=== PATIENT | female | born 1945 | race Asian ===

== ENCOUNTER 2016-07-09 16:18 | Observation (INO) | payer OTHER ==
[2016-07-09] VITALS (8 sets, daily range): BP systolic 166–199; BP diastolic 71–87; TEMP 98.2–98.4
[~2016-07-09] VITALS: Ht 167.6 cm; Wt 111.4 kg
[~2016-07-09 16:18] MED LIST: ACET7.5T70 PO; AMLO5TAB PO; BENICAR HCT1 TA1 PO; BENICAR HCT1 TAB PO; CLINDAMYCIN300 MG OR; COLC0.6T6 PO; DIAZ5TAB20 PO; DULO30CA PO; FLUT0.05 NAS; FLUTMIS6 INH; HYDR25TA15 PO; KRISTALOSE10 GM OR; LISI10TA11 PO; MECLIZINE25 MG OR; NUCYNTA100 MG PO; ROBAXIN500 MG PO; STOOL SOFTNR100 M1 PO; TOPAMAX50 MG PO; XOPENEX HFA IN
[2016-07-09 17:47] LABS: PLATELET COUNT 272 K/uL (152-353)
[2016-07-09 18:07] LABS: PARTIAL THROMBOPLASTIN TIME 23.9 SECONDS (24.5-33.6)
[2016-07-10 01:51] VITALS: BP 196/74; TEMP 98; Ht 167.6 cm; Wt 111.4 kg
[2016-07-10 04:00] VITALS: BP 168/82; TEMP 98
[2016-07-10 08:00] VITALS: BP 160/83; TEMP 97.5
[2016-07-10 09:47] LABS: POTASSIUM 3.9 mmol/L (3.6-5.2)
[2016-07-10 09:59] LABS: PLATELET COUNT 270 K/uL (152-353)
[2016-07-10 12:00] VITALS: BP 190/72; TEMP 98.1
[2016-07-10 16:00] VITALS: BP 181/69; TEMP 98.2
== END 2016-07-10 16:54 | disposition home or self-care (01) ==
LOC: ED 16:18 → MED/SURG 18:25
PROVIDERS: Emergency Medicine; ADMIT Emergency Medicine
DX: J44.0 Chronic obstructive pulmonary disease with (acute) lower respiratory infection (principal); J20.9 Acute bronchitis, unspecified; R06.02 Shortness of breath; R06.09 Other forms of dyspnea; B34.9 Viral infection, unspecified
CPT/HCPCS: 36415; 80053; 82550; 82553; 83605; 83735; 83880; 84484; 85027; 85610; 85730; 87040; 87804; 93005; 94640; 94664; 94760; 96365; 96372; 99220; 99284; G0378; J1650; J1956; J2060

== ENCOUNTER 2016-07-31 15:45 | Outpatient (CLI) | payer OTHER ==
[2016-07-31 17:57] LABS: POTASSIUM 3.8 mmol/L (3.6-5.2)
== END 2016-07-31 19:12 | disposition home or self-care (01) ==
LOC: LABW 15:45
PROVIDERS: Nurse Practitioner Family
DX: K59.09 Other constipation (principal); R53.83 Other fatigue; M10.9 Gout, unspecified; E87.6 Hypokalemia; R25.2 Cramp and spasm; E55.9 Vitamin D deficiency, unspecified
CPT/HCPCS: 36415; 80048; 82306; 82330; 83735; 83970

== ENCOUNTER 2016-08-29 09:01 | Outpatient (CLI) | payer OTHER | END 2016-08-29 19:07 | disposition home or self-care (01) | LOC: US 09:01 | DX: I82.493 Acute embolism and thrombosis of other specified deep vein of lower extremity, bilateral (principal) ==

== ENCOUNTER 2016-10-17 12:56 | Outpatient (CLI) | payer OTHER | END 2016-10-17 12:58 | disposition short-term general hospital (02) | LOC: AMB 12:56 | DX: M25.562 Pain in left knee (principal); M25.512 Pain in left shoulder; W18.39XA Other fall on same level, initial encounter; Y92.091 Bathroom in other non-institutional residence as the place of occurrence of the external cause | CPT/HCPCS: A0425; A0429 ==

== ENCOUNTER 2016-10-17 13:02 | Emergency (ER) | payer OTHER ==
[~2016-10-17] VITALS: Ht 167.6 cm; Wt 108.9 kg
[2016-10-17 14:05] VITALS: BP 168/80; TEMP 97.2
== END 2016-10-17 14:13 | disposition home or self-care (01) ==
LOC: ED 13:02
DX: S80.02XA Contusion of left knee, initial encounter (principal); S40.012A Contusion of left shoulder, initial encounter; W01.0XXA Fall on same level from slipping, tripping and stumbling without subsequent striking against object, initial encounter; Y92.098 Other place in other non-institutional residence as the place of occurrence of the external cause
CPT/HCPCS: 99283; J1885

== ENCOUNTER 2016-11-27 15:19 | Emergency (ER) | payer OTHER ==
[~2016-11-27] VITALS: Ht 167.6 cm; Wt 104.3 kg
[2016-11-27 16:54] LABS: PLATELET COUNT 252 K/uL (152-353)
[2016-11-27 16:57] LABS: POTASSIUM 4.1 mmol/L (3.6-5.2)
[2016-11-27 19:10] VITALS: BP 172/80; TEMP 98.5
== END 2016-11-27 19:10 | disposition home or self-care (01) ==
LOC: ED 15:19
DX: R60.9 Edema, unspecified (principal); I50.9 Heart failure, unspecified; N18.9 Chronic kidney disease, unspecified; I10 Essential (primary) hypertension
CPT/HCPCS: 36415; 80053; 81000; 83880; 85027; 85379; 99283

== ENCOUNTER 2016-12-14 20:57 | Emergency (ER) | payer OTHER ==
[~2016-12-14] VITALS: Ht 167.6 cm; Wt 122.5 kg
[2016-12-14 22:03] LABS: PLATELET COUNT 252 K/uL (152-353)
[2016-12-14 22:18] LABS: POTASSIUM 3.7 mmol/L (3.6-5.2)
[2016-12-14 22:49] VITALS: BP 155/68; TEMP 98
== END 2016-12-14 22:49 | disposition home or self-care (01) ==
LOC: ED 20:57
DX: R55 Syncope and collapse (principal); S00.83XA Contusion of other part of head, initial encounter; W18.39XA Other fall on same level, initial encounter; Y92.22 Religious institution as the place of occurrence of the external cause
CPT/HCPCS: 36415; 80053; 85027; 99283

== ENCOUNTER 2017-04-07 10:44 | Outpatient (CLI) | payer OTHER | END 2017-04-07 12:00 | disposition home or self-care (01) | LOC: MAMMO 10:44 | DX: Z12.31 Encounter for screening mammogram for malignant neoplasm of breast (principal) ==

== ENCOUNTER 2017-05-10 10:36 | Observation (INO) | payer OTHER ==
[~2017-05-10] VITALS: Ht 167.6 cm; Wt 122.0 kg
[2017-05-10 10:57] VITALS: BP 200/69; TEMP 97.9
[2017-05-10 12:07] VITALS: BP 174/67
[2017-05-10 13:48] LABS: PLATELET COUNT 262 K/uL (152-353)
[2017-05-10 14:00] VITALS: BP 169/65; TEMP 98
[2017-05-10 16:05] VITALS: BP 174/72; TEMP 98
[2017-05-10 18:04] VITALS: BP 166/74; TEMP 98
[2017-05-10 18:05] LABS: POTASSIUM 3.5 mmol/L (3.6-5.2)
[2017-05-10 22:22] VITALS: BP 189/70; TEMP 98.7; Ht 167.6 cm; Wt 122.0 kg
[2017-05-10 23:43] LABS: PARTIAL THROMBOPLASTIN TIME 24.5 SECONDS (24.5-33.6)
[2017-05-11] VITALS (11 sets, daily range): BP systolic 127–234; BP diastolic 51–82; TEMP 97.9–98.3
[2017-05-11] LABS: POTASSIUM 3.8 mmol/L (3.6-5.2)
== END 2017-05-11 17:35 | disposition home or self-care (01) ==
LOC: ED 10:36 → MED/SURG 17:02
PROVIDERS: ADMIT Specialist
PROC: 0DB68ZX Excision of Stomach, Via Natural or Artificial Opening Endoscopic, Diagnostic (ICD-10-PCS; principal; 2017-05-11)
DX: K29.60 Other gastritis without bleeding (principal); K31.7 Polyp of stomach and duodenum; K44.9 Diaphragmatic hernia without obstruction or gangrene; M79.7 Fibromyalgia; I10 Essential (primary) hypertension
CPT/HCPCS: 36415; 80048; 80053; 82150; 82550; 83690; 83880; 84484; 85027; 85610; 85730; 93005; 96374; 99220; 99284; G0378; J2001; J2250; J2270; J2405; J2704; J3490

== ENCOUNTER 2017-07-18 13:48 | Emergency (ER) | payer OTHER ==
[~2017-07-18] VITALS: Ht 167.6 cm; Wt 108.9 kg
[2017-07-18 13:54] VITALS: TEMP 97.5
[2017-07-18] MEDS ORDERED: GRALISE600 MG OR (14:27)
[2017-07-18] MEDS ORDERED: POTASSIUM CHLO10 ME1 OR (14:29)
[2017-07-18] MEDS ORDERED: SIMV40TA57 PO (14:30)
[2017-07-18] MEDS ORDERED: TOPAMAX50 MG OR (14:31)
[2017-07-18] MEDS ORDERED: NEXIUM40 MG PO (14:33)
[2017-07-18] MEDS ORDERED: TIZA4TAB5 PO (14:34)
[2017-07-18] MEDS ORDERED: BENICAR HCT1 TA1 PO (14:35)
[2017-07-18] MEDS ORDERED: LINZESS290 MCG OR (14:36)
[2017-07-18] MEDS ORDERED: LYRICA75 MG OR ×2 (14:37→14:38)
[2017-07-18] MEDS ORDERED: MELATONIN10 M1 OR (14:39)
[2017-07-18] MEDS ORDERED: OMEGA 31000 MG OR (14:39)
[2017-07-18 16:07] VITALS: BP 140/57
== END 2017-07-18 16:21 | disposition home or self-care (01) ==
LOC: ED 13:48
DX: R07.89 Other chest pain (principal); R00.1 Bradycardia, unspecified
CPT/HCPCS: 93005; 96365; 99284; J1885

== ENCOUNTER 2017-08-10 10:54 | Outpatient (CLI) | payer OTHER ==
[~2017-08-10 10:54] MED LIST changes: +GRALISE600 MG OR; +LINZESS290 MCG OR; +LYRICA75 MG OR; +MELATONIN10 M1 OR; +NEXIUM40 MG PO; +OMEGA 31000 MG OR; +POTASSIUM CHLO10 ME1 OR; +SIMV40TA57 PO; +TIZA4TAB5 PO; +TOPAMAX50 MG OR
== END 2017-08-10 19:25 | disposition home or self-care (01) ==
LOC: LABW 10:54
PROVIDERS: Internal Medicine Rheumatology
DX: M1A.09X0 Idiopathic chronic gout, multiple sites, without tophus (tophi) (principal)
CPT/HCPCS: 36415; 80048

== ENCOUNTER 2017-08-18 09:09 | Outpatient (CLI) | payer OTHER | END 2017-08-18 22:54 | disposition home or self-care (01) | LOC: CT 09:09 | DX: R09.1 Pleurisy (principal); R91.8 Other nonspecific abnormal finding of lung field ==

== ENCOUNTER 2017-09-23 17:40 | Outpatient (CLI) | payer OTHER ==
[2017-09-23] MEDS ORDERED: SPRITAM500 MG PO (18:15)
== END 2017-09-23 18:02 | disposition short-term general hospital (02) ==
LOC: AMB 17:40
DX: M79.631 Pain in right forearm (principal); M79.605 Pain in left leg; M79.604 Pain in right leg; W17.89XA Other fall from one level to another, initial encounter; Y92.091 Bathroom in other non-institutional residence as the place of occurrence of the external cause
CPT/HCPCS: A0425; A0427

== ENCOUNTER 2017-09-23 18:09 | Emergency (ER) | payer OTHER ==
[~2017-09-23] VITALS: Ht 170.2 cm; Wt 113.4 kg
[2017-09-23 18:10] VITALS: TEMP 98.1
[2017-09-23] MEDS ORDERED: SPRITAM500 MG PO (18:15)
[2017-09-23 19:26] LABS: PLATELET COUNT 226 K/uL (152-353)
[2017-09-23 19:35] LABS: POTASSIUM 3.5 mmol/L (3.6-5.2)
[2017-09-23 20:00] VITALS: BP 203/82
== END 2017-09-23 20:04 | disposition home or self-care (01) ==
LOC: ED 18:09
DX: S40.011A Contusion of right shoulder, initial encounter (principal); S70.01XA Contusion of right hip, initial encounter; S80.01XA Contusion of right knee, initial encounter; M17.11 Unilateral primary osteoarthritis, right knee; W18.39XA Other fall on same level, initial encounter; Y92.89 Other specified places as the place of occurrence of the external cause
CPT/HCPCS: 80053; 81000; 85027; 99283

== ENCOUNTER 2017-12-28 10:44 | Outpatient (CLI) | payer OTHER ==
[~2017-12-28 10:44] MED LIST changes: +SPRITAM500 MG PO
== END 2017-12-28 19:38 | disposition home or self-care (01) ==
LOC: RESP 10:44
DX: J45.901 Unspecified asthma with (acute) exacerbation (principal)

== ENCOUNTER 2018-01-16 14:51 | Emergency (ER) | payer OTHER ==
[~2018-01-16] VITALS: Ht 165.1 cm; Wt 117.9 kg
[2018-01-16 15:17] VITALS: BP 209/77; TEMP 98.4
[2018-01-16] MEDS ORDERED: DULOXETINE HCL60 MG PO (15:20)
[2018-01-16] MEDS ORDERED: POTASSIUM CHLO20 MEQ PO (15:21)
[2018-01-16] MEDS ORDERED: KEPPRA1000 MG PO (15:22)
[2018-01-16] MEDS ORDERED: DOCU100C10 PO (15:22)
[2018-01-16] MEDS ORDERED: MONT10TA PO (15:22)
[2018-01-16] MEDS ORDERED: GRALISE600 MG PO ×2 (15:23→15:24)
[2018-01-16] MEDS ORDERED: LYRICA150 MG PO (15:24)
[2018-01-16] MEDS ORDERED: LUBI24CA PO (15:25)
[2018-01-16] MEDS ORDERED: AMLODIPINE BESYLATE PO (15:25)
[2018-01-16] MEDS ORDERED: SIMV40TA57 (15:25)
== END 2018-01-16 16:19 | disposition home or self-care (01) ==
LOC: ED 14:51
DX: R07.89 Other chest pain (principal); R60.9 Edema, unspecified; R05 Cough; M79.606 Pain in leg, unspecified
CPT/HCPCS: 99281

== ENCOUNTER 2018-04-23 08:40 | Outpatient (CLI) | payer OTHER ==
[~2018-04-23 08:40] MED LIST changes: +AMLODIPINE BESYLATE PO; +DOCU100C10 PO; +DULOXETINE HCL60 MG PO; +GRALISE600 MG PO; +KEPPRA1000 MG PO; +LUBI24CA PO; +LYRICA150 MG PO; +MONT10TA PO; +POTASSIUM CHLO20 MEQ PO; +SIMV40TA57
== END 2018-04-23 20:31 | disposition home or self-care (01) ==
LOC: MAMMO 08:40
DX: Z12.31 Encounter for screening mammogram for malignant neoplasm of breast (principal)

== ENCOUNTER 2018-05-12 08:49 | Outpatient (CLI) | payer OTHER | END 2018-05-12 19:19 | disposition home or self-care (01) | LOC: CT 08:49 | DX: K59.04 Chronic idiopathic constipation (principal) | CPT/HCPCS: 82565; 84520; Q9963 ==

== ENCOUNTER 2018-05-24 06:57 | Emergency (ER) | payer OTHER ==
[~2018-05-24] VITALS: Ht 165.1 cm; Wt 117.9 kg
[2018-05-24 08:16] LABS: PLATELET COUNT 275 K/uL (152-353)
[2018-05-24 08:27] LABS: POTASSIUM 4.4 mmol/L (3.6-5.2)
[2018-05-24 09:56] VITALS: BP 114/51; TEMP 97.7
== END 2018-05-24 09:56 | disposition home or self-care (01) ==
LOC: ED 06:57
PROVIDERS: Family Medicine
DX: M17.0 Bilateral primary osteoarthritis of knee (principal)
CPT/HCPCS: 80053; 81000; 85027; 96372; 99283; J2175; J2550

== ENCOUNTER 2019-01-21 15:50 | Emergency (ER) | payer OTHER ==
[~2019-01-21] VITALS: Ht 165.1 cm; Wt 117.9 kg
[2019-01-21 16:12] VITALS: TEMP 97.7
[2019-01-21 17:08] LABS: PLATELET COUNT 129 K/uL (152-353)
[2019-01-21 17:27] LABS: POTASSIUM 3.8 mmol/L (3.6-5.2)
[2019-01-21 18:09] VITALS: BP 144/66
== END 2019-01-21 18:10 | disposition home or self-care (01) ==
LOC: ED 15:50
PROVIDERS: Family Medicine
DX: I10 Essential (primary) hypertension (principal); R51 Headache
CPT/HCPCS: 80053; 85027; 99283

== ENCOUNTER 2019-03-01 09:13 | Outpatient (CLI) | payer OTHER ==
[2019-03-01 09:42] LABS: PLATELET COUNT 216 K/uL (152-353)
[2019-03-01 10:09] LABS: POTASSIUM 4.8 mmol/L (3.6-5.2)
== END 2019-03-01 20:09 | disposition home or self-care (01) ==
LOC: LABW 09:13
DX: I11.0 Hypertensive heart disease with heart failure (principal); R53.83 Other fatigue
CPT/HCPCS: 36415; 80053; 83880; 84443; 85027

== ENCOUNTER 2019-03-25 10:19 | Outpatient (CLI) | payer OTHER ==
[2019-03-25 10:37] LABS: PLATELET COUNT 238 K/uL (152-353)
[2019-03-25 10:59] LABS: POTASSIUM 4.6 mmol/L (3.6-5.2)
== END 2019-03-25 22:24 | disposition home or self-care (01) ==
LOC: LABW 10:19
PROVIDERS: Internal Medicine
DX: I10 Essential (primary) hypertension (principal)
CPT/HCPCS: 36415; 80053; 80061; 81000; 84439; 84443; 85027

== ENCOUNTER 2019-04-28 18:19 | Outpatient (CLI) | payer OTHER | END 2019-04-28 18:22 | disposition short-term general hospital (02) | LOC: AMB 18:19 | DX: M79.672 Pain in left foot (principal) | CPT/HCPCS: A0425; A0427 ==

== ENCOUNTER 2019-04-28 18:25 | Emergency (ER) | payer OTHER ==
[~2019-04-28] VITALS: Ht 165.1 cm; Wt 116.1 kg
[2019-04-28 20:19] VITALS: BP 168/73; TEMP 98.1
== END 2019-04-28 20:19 | disposition home or self-care (01) ==
LOC: ED 18:25
DX: M79.671 Pain in right foot (principal)
CPT/HCPCS: 99283

== ENCOUNTER 2019-10-14 15:20 | Emergency (ER) | payer OTHER ==
[~2019-10-14] VITALS: Ht 165.1 cm; Wt 117.9 kg
[2019-10-14 15:39] VITALS: TEMP 98.1
[2019-10-14 17:14] LABS: PLATELET COUNT 341 K/uL (152-353)
[2019-10-14 17:18] LABS: POTASSIUM 3.3 mmol/L (3.6-5.2)
[2019-10-14 18:45] VITALS: BP 170/80
== END 2019-10-14 18:45 | disposition home or self-care (01) ==
LOC: ED 15:20
PROVIDERS: Family Medicine
DX: N39.0 Urinary tract infection, site not specified (principal); E87.6 Hypokalemia
CPT/HCPCS: 80053; 81000; 85027; 87077; 87086; 87088; 87186; 96365; 99284; J0696

== ENCOUNTER 2019-10-31 12:16 | Emergency (ER) | payer OTHER ==
[~2019-10-31] VITALS: Ht 165.1 cm; Wt 117.9 kg
[2019-10-31 12:33] VITALS: TEMP 98.7
[2019-10-31 13:59] LABS: PLATELET COUNT 344 K/uL (152-353)
[2019-10-31 14:08] LABS: POTASSIUM 4.1 mmol/L (3.6-5.2)
[2019-10-31 18:00] VITALS: BP 179/78
== END 2019-10-31 18:00 | disposition home or self-care (01) ==
LOC: ED 12:16
PROVIDERS: Family Medicine
DX: K21.9 Gastro-esophageal reflux disease without esophagitis (principal); Z79.899 Other long term (current) drug therapy
CPT/HCPCS: 80053; 81000; 82150; 83605; 83690; 85027; 96360; 96375; 99284; J2405; J3490

== ENCOUNTER 2020-01-25 12:12 | Emergency (ER) | payer OTHER ==
[~2020-01-25] VITALS: Ht 165.1 cm; Wt 117.9 kg
[2020-01-25 12:30] VITALS: TEMP 98.3
[2020-01-25 13:27] LABS: PLATELET COUNT 287 K/uL (152-353); POTASSIUM 3.9 mmol/L (3.6-5.2); SODIUM 140 mmol/L (136-145)
[2020-01-25 15:20] VITALS: BP 168/59
== END 2020-01-25 17:45 | disposition home or self-care (01) ==
LOC: ED 12:12
PROVIDERS: Emergency Medicine
DX: R07.89 Other chest pain (principal)
CPT/HCPCS: 80053; 82550; 82553; 84484; 85027; 85379; 93005; 99284

== ENCOUNTER 2020-02-03 10:25 | Outpatient (CLI) | payer OTHER | END 2020-02-03 23:55 | disposition home or self-care (01) | LOC: MAMMO 10:25 | DX: Z12.31 Encounter for screening mammogram for malignant neoplasm of breast (principal) ==

== ENCOUNTER 2020-05-21 11:14 | Outpatient (CLI) | payer OTHER | END 2020-05-21 21:57 | disposition home or self-care (01) | LOC: RAD 11:14 | PROVIDERS: ATTEND Internal Medicine Rheumatology | DX: M17.0 Bilateral primary osteoarthritis of knee (principal); M19.041 Primary osteoarthritis, right hand; M19.042 Primary osteoarthritis, left hand ==

== ENCOUNTER 2020-06-28 12:12 | Outpatient (CLI) | payer OTHER ==
[2020-06-28 13:14] LABS: PLATELET COUNT 286 K/uL (152-353)
[2020-06-28 13:22] LABS: POTASSIUM 3.9 mmol/L (3.6-5.2)
== END 2020-06-28 20:09 | disposition home or self-care (01) ==
LOC: LABW 12:12
PROVIDERS: ATTEND Nurse Practitioner Adult Health
DX: L81.0 Postinflammatory hyperpigmentation (principal); Z79.899 Other long term (current) drug therapy
CPT/HCPCS: 36415; 80048; 80074; 80076; 81000; 82150; 83690; 83735; 84100; 84443; 85027; 85652; 86038

== ENCOUNTER 2020-08-22 13:43 | Outpatient (CLI) | payer OTHER | END 2020-08-22 22:45 | disposition home or self-care (01) | LOC: INF 13:43 | PROVIDERS: ATTEND Internal Medicine | DX: Z23 Encounter for immunization (principal) | CPT/HCPCS: 96372 ==

== ENCOUNTER 2020-09-13 10:56 | Outpatient (CLI) | payer OTHER | END 2020-09-13 19:38 | disposition home or self-care (01) | LOC: INF 10:56 | PROVIDERS: ATTEND Internal Medicine | DX: Z23 Encounter for immunization (principal) | CPT/HCPCS: 96372 ==

== ENCOUNTER 2021-01-26 13:50 | Emergency (ER) | payer OTHER ==
[~2021-01-26] VITALS: Ht 167.6 cm; Wt 117.9 kg
[2021-01-26 13:55] VITALS: TEMP 96.8
[2021-01-26 14:45] LABS: PLATELET COUNT 289 K/uL (152-353)
[2021-01-26 14:47] LABS: POTASSIUM 3.7 mmol/L (3.6-5.2); SODIUM 132 mmol/L (136-145)
[2021-01-26 15:00] VITALS: BP 147/67
== END 2021-01-26 15:43 | disposition home or self-care (01) ==
LOC: ED 13:50
PROVIDERS: Emergency Medicine
DX: R10.13 Epigastric pain (principal); K59.09 Other constipation
CPT/HCPCS: 80053; 84484; 85027; 93005; 99283

== ENCOUNTER 2021-04-22 13:45 | Outpatient (CLI) | payer OTHER | END 2021-04-22 21:04 | disposition home or self-care (01) | LOC: MAMMO 13:45 → RAD 15:30 → MAMMO 21:04 | PROVIDERS: ATTEND General Practice | DX: Z12.31 Encounter for screening mammogram for malignant neoplasm of breast (principal); Z13.820 Encounter for screening for osteoporosis; N95.8 Other specified menopausal and perimenopausal disorders ==

== ENCOUNTER 2021-05-11 13:20 | Outpatient (CLI) | payer OTHER ==
[2021-05-11 13:46] LABS: PLATELET COUNT 315 K/uL (152-353)
[2021-05-11 14:05] LABS: POTASSIUM 4.7 mmol/L (3.6-5.2)
== END 2021-05-11 18:58 | disposition home or self-care (01) ==
LOC: LABW 13:20
PROVIDERS: ATTEND Internal Medicine
DX: E78.2 Mixed hyperlipidemia (principal); I10 Essential (primary) hypertension; E03.8 Other specified hypothyroidism
CPT/HCPCS: 36415; 80053; 80061; 84443; 85027

== ENCOUNTER 2021-11-29 10:38 | Outpatient (CLI) | payer OTHER | END 2021-11-29 19:59 | disposition home or self-care (01) | LOC: RAD 10:38 | PROVIDERS: ATTEND Nurse Practitioner Family | DX: M17.0 Bilateral primary osteoarthritis of knee (principal); M25.50 Pain in unspecified joint; M25.512 Pain in left shoulder; M43.06 Spondylolysis, lumbar region ==

== ENCOUNTER 2022-04-28 12:52 | Outpatient (CLI) | payer OTHER | END 2022-04-28 19:36 | disposition home or self-care (01) | LOC: MAMMO 12:52 | PROVIDERS: ATTEND Internal Medicine | DX: Z12.31 Encounter for screening mammogram for malignant neoplasm of breast (principal) ==